=== PATIENT | female | born 1940 | race Caucasian/White ===

== ENCOUNTER 2017-08-31 09:57 | Outpatient (CLI) | payer MEDICARE, OTHER ==
[2017-08-31 10:23] LABS: BASOPHILS # (AUTO) 0.2 10^3/uL (0.0-0.1); BASOPHILS % (AUTO) 2.7 %; EOSINOPHILS # (AUTO) 0.3 10^3/uL (0.0-0.7); EOSINOPHILS % (AUTO) 4.4 %; LYMPHOCYTES # (AUTO) 1.6 10^3/uL (1.5-3.5); LYMPHOCYTES % (AUTO) 25.9 %; MEAN CORPUSCULAR HEMOGLOBIN 29.3 pg (27.0-31.0); MEAN CORPUSCULAR HGB CONC 33.3 g/dL (32.0-36.0); MEAN PLATELET VOLUME 9.4 fL (7.9-10.8); MONOCYTES # (AUTO) 0.4 10^3/uL (0.0-1.0); MONOCYTES % (AUTO) 6.9 %; NEUTROPHILS # (AUTO) 3.7 10^3/uL (1.5-6.6); NEUTROPHILS % (AUTO) 60.1 %; PLT - PLATELET COUNT 204 10^3/uL (130-450); RED BLOOD COUNT 4.43 10^6/uL (4.20-5.40); RED CELL DISTRIBUTION WIDTH 14.9 % (12.0-15.0); WHITE BLOOD COUNT 6.2 x10^3/uL (4.8-10.8)
[2017-08-31 10:51] LABS: ALBUMIN 3.8 g/dL (3.2-5.5); ALBUMIN/GLOBULIN RATIO 1.2 (1.0-2.2); ALKALINE PHOSPHATASE 51 IU/L (42-121); ALT ALANINE AMINOTRANSFERASE 21 IU/L (10-60); AST ASPARTATE AMINOTRANSFERASE 26 IU/L (10-42); BILIRUBIN,TOTAL 0.5 mg/dL (0.2-1.0); BUN - BLOOD UREA NITROGEN 15 mg/dL (6-20); CALCIUM 8.9 mg/dL (8.5-10.3); CARBON DIOXIDE - CO2 27 mmol/L (21-32); CHLORIDE 106 mmol/L (101-111); CHOL/HDL RATIO 2.8 (<4.4); CHOLESTEROL 194 mg/dL; CREATININE 0.7 mg/dL (0.4-1.0); GFR - MDRD 81 (>89); GLUCOSE 106 mg/dL (70-100); HDL CHOLESTEROL 70 mg/dL; LDL CHOLESTEROL,CALCULATED 101 mg/dL; LDL/HDL RATIO 1.4 (<4.4); SODIUM 139 mmol/L (135-145); VLDL CHOLESTEROL 23 mg/dL
== END 2017-08-31 09:58 | disposition home or self-care (01) ==
LOC: LAB 09:57
PROVIDERS: ATTEND Physician Assistant Medical
DX: E55.9 Vitamin D deficiency, unspecified (principal); M81.0 Age-related osteoporosis without current pathological fracture; E66.01 Morbid (severe) obesity due to excess calories; M54.9 Dorsalgia, unspecified; Z79.899 Other long term (current) drug therapy
CPT/HCPCS: 36415; 80053; 80061; 82306; 83721; 84443; 85025

== ENCOUNTER 2017-10-11 08:00 | Outpatient (CLI) | payer MEDICARE, OTHER ==
--- NOTE | 2017-10-12 16:53 | Mammography Report ---
DIGITAL SCREENING MAMMOGRAM: 10/11/2017 CLINICAL INDICATION: A 77-year-old for screening. COMPARISON: 06/2015, 10/2012, 08/2011, 09/2009 TECHNIQUE: Routine CC and MLO projections were obtained of the breasts. FINDINGS: The breasts demonstrate fatty replacement bilaterally. A punctate, typically benign calcifications are present. No suspicious masses, clustered microcalcifications, or regions of architectural distortion are identified. IMPRESSION: BENIGN FINDINGS. RECOMMENDATION: Routine annual screening unless otherwise clinically indicated. BIRADS CATEGORY 2 BENIGN FINDINGS. STANDARD QUALIFYING STATEMENTS: 1. This examination was reviewed with the aid of Computer-Aided Detection (CAD). 2. A negative or benign imaging report should not delay biopsy if clinically suspicious findings are present. Consider surgical consultation if warranted. More than 5% of cancers are not identified by imaging. 3. Dense breasts may obscure an underlying neoplasm. TD: 10/12/2017 16:52
== END 2017-10-11 08:01 | disposition home or self-care (01) ==
LOC: DI 08:00
PROVIDERS: ATTEND Physician Assistant Medical
DX: Z12.31 Encounter for screening mammogram for malignant neoplasm of breast (principal)
CPT/HCPCS: 77067

== ENCOUNTER 2017-10-12 15:11 | Outpatient (CLI) | payer MEDICARE, OTHER ==
[2017-10-12 15:33] LABS: BASOPHILS # (AUTO) 0.1 10^3/uL (0.0-0.1); BASOPHILS % (AUTO) 1.3 %; EOSINOPHILS # (AUTO) 0.3 10^3/uL (0.0-0.7); EOSINOPHILS % (AUTO) 3.9 %; HGB - HEMOGLOBIN 13.1 g/dL (12.0-16.0); LYMPHOCYTES # (AUTO) 2.5 10^3/uL (1.5-3.5); MEAN CORPUSCULAR HEMOGLOBIN 29.5 pg (27.0-31.0); MEAN CORPUSCULAR HGB CONC 33.4 g/dL (32.0-36.0); MEAN CORPUSCULAR VOLUME 88.1 fL (81.0-99.0); MEAN PLATELET VOLUME 9.5 fL (7.9-10.8); MONOCYTES # (AUTO) 0.6 10^3/uL (0.0-1.0); MONOCYTES % (AUTO) 8.9 %; NEUTROPHILS # (AUTO) 3.7 10^3/uL (1.5-6.6); NEUTROPHILS % (AUTO) 51.9 %; PLT - PLATELET COUNT 216 10^3/uL (130-450); RED BLOOD COUNT 4.43 10^6/uL (4.20-5.40); WHITE BLOOD COUNT 7.2 x10^3/uL (4.8-10.8)
[2017-10-12 15:41] LABS: ALBUMIN 3.9 g/dL (3.2-5.5); ALBUMIN/GLOBULIN RATIO 1.2 (1.0-2.2); BILIRUBIN,TOTAL 0.3 mg/dL (0.2-1.0); CALCIUM 8.7 mg/dL (8.5-10.3); CREATININE 0.6 mg/dL (0.4-1.0); TOTAL PROTEIN 7.1 g/dL (6.7-8.2)
== END 2017-10-12 15:12 | disposition home or self-care (01) ==
LOC: LAB 15:11
PROVIDERS: ATTEND Physician Assistant Medical
DX: R07.9 Chest pain, unspecified (principal)
CPT/HCPCS: 36415; 80053; 84484; 85025

== ENCOUNTER 2017-11-14 12:48 | Outpatient (CLI) | payer MEDICARE, OTHER ==
[~2017-11-14 12:48] MED LIST: GADOBUTROL 10 MMOL/10 ML VIAL ONE
[2017-11-14] MEDS ORDERED: GADOBUTROL 10 MMOL/10 ML VIAL IVP ONE (13:37)
--- NOTE | 2017-11-15 06:14 | MRI Report ---
EXAM: MRI BRAIN AND INTERNAL AUDITORY CANAL (IAC),WITHOUT AND WITH CONTRAST. EXAM DATE: 11/14/2017 01:47 PM. CLINICAL HISTORY: VERTIGO. COMPARISON: None. TECHNIQUE: Multiplanar, multisequence T1-weighted and fluid-sensitive MRI sequences of the brain and IACs were performed. Other: None. IV Contrast: 10ML GADAVIST. FINDINGS: Brain Volume: There is age-related generalized cerebral volume loss. Parenchyma/Dura: No acute hemorrhage, mass, or acute infarct.There is mild chronic microvascular charles ge in the white matter of both cerebral hemispheres. The brainstem and cerebellum are normal in signa l. No abnormal enhancement. Internal Auditory Canals (IACs): Normal. There is no mass or abnormal contrast enhancement in the int racolonic ray canals or cerebellopontine angle cisterns. The inner ear structure are symmetric and un remarkable. Ventricles/Cisterns: No hydrocephalus. No abnormal extra-axial fluid collection or hemorrhage. Orbits: Symmetric and unremarkable. Sella Turcica: Unremarkable. Vasculature: Normal signal flow void is seen in the major arterial structures at the skull base. The dural sinuses are patent and enhance normally. Sinuses: No acute sinus disease. Bones: No focal pathologic appearing marrow signal changes. Other: There is no Chiari I malformation. IMPRESSION: 1. No acute intracranial abnormality. No acute infarct. 2. Mild age related generalized cerebral volume loss and chronic microvascular change. 3. No intracranial mass lesion, mass effect, hydrocephalus, or abnormal contrast enhancement. 4. Normal MRI of bilateral IACs. [facility] Referring Provider Line: [phone] SITE ID: [id number]
== END 2017-11-14 12:49 | disposition home or self-care (01) ==
LOC: DI 12:48
PROVIDERS: ATTEND Physician Assistant Medical
DX: R42 Dizziness and giddiness (principal); R00.2 Palpitations; R07.9 Chest pain, unspecified; R03.0 Elevated blood-pressure reading, without diagnosis of hypertension; E66.01 Morbid (severe) obesity due to excess calories
CPT/HCPCS: 70553; A9585

== ENCOUNTER 2017-11-16 09:54 | Outpatient (CLI) | payer MEDICARE, OTHER ==
[2017-11-16] MEDS ORDERED: ADENOSINE 90 MG/30 ML VIAL IVP SCH (12:00)
--- NOTE | 2017-11-16 13:27 | CARDIAC PROCEDURE NOTE ---
DATE OF SERVICE: 11/16/2017 Physician: VIC Gupta PRIMARY CARE PHYSICIAN: Rebeka dominguez PA-C PROCEDURE: Pharmacologic cardiac stress test. SYMPTOMS: Palpitations and chest pain. CARDIAC RISK FACTORS: Age, family history, hypertension. PREVIOUS CARDIAC PROCEDURES: None. CLINICAL HISTORY: 77-year-old female without known coronary artery disease. She has no current symptoms. INITIAL RESTING VITAL SIGNS: BP 150/84, heart rate 73, height 66 inches, weight 230 pounds, BMI 37.0. PROCEDURE AND FINDINGS: The patient identity and date verified. Consent signed. Pharmaceutical check. Pharmacologic stress testing was performed with adenosine at a dose of 140 mcg/kg/min over 6 minutes. The heart rate increased to 104 beats per minute from the infusion. Blood pressure response was normal and dropped to about 120 systolic. The patient developed infusion-related symptoms, which included flushing, headache, and chest and arm pressure. These symptoms resolved spontaneously. The resting ECG demonstrated normal sinus rhythm with nonspecific ST changes of approximately 0.[address] depression[address] ST segment depression with stress was approximately 1 mm and flat in leads II, III, aVF, V3-6. There was a rare PVC. FINAL IMPRESSIONS 1. A positive electrocardiogram for ischemia in the setting of vasodilator stress. 2. Nondiagnostic stress test for angina. 3. Await myocardial perfusion report. TD: 11/16/2017 13:12
[2017-11-16 16:37] VITALS: BP 150/84
--- NOTE | 2017-11-16 17:17 | Nuclear Medicine Report ---
EXAM: NUCLEAR MEDICINE MYOCARDIAL PERFUSION STRESS AND REST EXAM DATE: 11/16/2017 03:30 PM. CLINICAL HISTORY: Palpitations, chest pain. COMPARISON: None. TECHNIQUE: Patient given 9.6 mCi technetium 99m sestamibi IV for the rest portion of the study. Non-g ated cardiac SPECT scintigraphy performed with multiplanar reformats. After an appropriate delay, patient given 85.9 mg adenosine by slow intravenous infusion. Cardiac gat ed SPECT scintigraphy is performed with multiplanar reformats, wall motion analysis, and left ventric ular ejection fraction estimation. FINDINGS: Maximum heart rate 104 bpm, 72% of maximum predicted. There is mild to moderate decreased activity in the anterior and anteroseptal mid ventricle on both s tress and rest, most consistent with breast attenuation artifact. Other than this, there is uniform uptake in the left ventricular myocardium on stress and rest. No st ress related reversible perfusion defects. Wall motion is uniform. Left ventricular ejection fraction estimated at 81%. IMPRESSION: 1. No scintigraphic evidence of inducible ischemia or infarct. 2. Anteroseptal defect most likely breast attenuation artifact. 3. Left ventricular ejection fraction estimated at 81%. [facility] Referring Provider Line: [phone] SITE ID: [id number]
== END 2017-11-16 09:55 | disposition home or self-care (01) ==
LOC: DI 09:54
PROVIDERS: ATTEND Physician Assistant Medical
DX: R00.2 Palpitations (principal); R07.9 Chest pain, unspecified; R03.0 Elevated blood-pressure reading, without diagnosis of hypertension; E66.01 Morbid (severe) obesity due to excess calories
CPT/HCPCS: 78452; 93017; A9500; J0153; 93016; 93018

== ENCOUNTER 2019-08-01 11:36 | Outpatient (CLI) | payer MEDICARE, OTHER ==
[2019-08-02 14:22] LABS: HGB - HEMOGLOBIN 13.3 g/dL (12.0-16.0); RED BLOOD COUNT 4.41 10^6/uL (4.20-5.40); WHITE BLOOD COUNT 5.8 x10^3/uL (4.8-10.8)
[2019-08-02 14:23] LABS: MEAN CORPUSCULAR HEMOGLOBIN 30.2 pg (27.0-31.0); MEAN CORPUSCULAR HGB CONC 33.2 g/dL (32.0-36.0); MEAN CORPUSCULAR VOLUME 90.9 fL (81.0-99.0); MEAN PLATELET VOLUME 11.1 fL (7.9-10.8); NEUTROPHILS % (AUTO) 59.3 %; PLT - PLATELET COUNT 234 10^3/uL (130-450)
[2019-08-02 14:24] LABS: BASOPHILS # (AUTO) 0.1 10^3/uL (0.0-0.1); BASOPHILS % (AUTO) 1.4 %; EOSINOPHILS # (AUTO) 0.2 10^3/uL (0.0-0.7); EOSINOPHILS % (AUTO) 3.6 %; LYMPHOCYTES # (AUTO) 1.7 10^3/uL (1.5-3.5); LYMPHOCYTES % (AUTO) 28.5 %; MONOCYTES # (AUTO) 0.4 10^3/uL (0.0-1.0); MONOCYTES % (AUTO) 6.9 %; NEUTROPHILS # (AUTO) 3.4 10^3/uL (1.5-6.6)
[2019-08-02 14:42] LABS: BUN - BLOOD UREA NITROGEN 17 mg/dL (6-20); CARBON DIOXIDE - CO2 28 mmol/L (21-32); CHLORIDE 102 mmol/L (101-111); SODIUM 140 mmol/L (135-145)
[2019-08-02 14:43] LABS: ALKALINE PHOSPHATASE 46 IU/L (42-121); ALT ALANINE AMINOTRANSFERASE 21 IU/L (10-60); AST ASPARTATE AMINOTRANSFERASE 26 IU/L (10-42); BILIRUBIN,TOTAL 0.7 mg/dL (0.2-1.0); CALCIUM 9.1 mg/dL (8.5-10.3); CREATININE 0.7 mg/dL (0.4-1.0); CRP - C-REACTIVE PROTEIN < 1.0 mg/dL (0-1.0); GFR - MDRD 81 (>89); GLUCOSE 107 mg/dL (70-100)
[2019-08-02 14:44] LABS: ALBUMIN/GLOBULIN RATIO 1.3 (1.0-2.2); CHOLESTEROL 183 mg/dL; TOTAL PROTEIN 7.1 g/dL (6.7-8.2); VLDL CHOLESTEROL 15 mg/dL
[2019-08-02 14:45] LABS: CHOL/HDL RATIO 2.3 (<4.4); HDL CHOLESTEROL 78 mg/dL; LDL CHOLESTEROL,CALCULATED 90 mg/dL; LDL/HDL RATIO 1.2 (<4.4)
== END 2019-08-01 23:59 | disposition home or self-care (01) ==
LOC: LAB 11:36
PROVIDERS: ATTEND Nurse Practitioner
DX: Z00.00 Encounter for general adult medical examination without abnormal findings (principal); I10 Essential (primary) hypertension; Z79.899 Other long term (current) drug therapy; E66.01 Morbid (severe) obesity due to excess calories; M81.0 Age-related osteoporosis without current pathological fracture; E55.9 Vitamin D deficiency, unspecified; F32.9 Major depressive disorder, single episode, unspecified; R00.2 Palpitations
CPT/HCPCS: 36415; 80053; 80061; 82306; 83721; 84443; 85025; 86140

== ENCOUNTER 2019-08-01 12:43 | Outpatient (CLI) | payer MEDICARE, OTHER ==
--- NOTE | 2019-08-02 | Ultrasound Report ---
Reason: RT KNEE MASS Procedure Date: 08/01/2019 Accession Number: [id number] / [id number] Procedure: US - Duplex Ext Veins Right CPT Code: Final Report FULL RESULT: EXAM: RIGHT LOWER EXTREMITY VENOUS ULTRASOUND EXAM DATE: 08/01/2019 02:17 PM. CLINICAL HISTORY: RT KNEE MASS. COMPARISON: DUPLEX EXT VEINS RIGHT 03/09/2015 3:30 PM. TECHNIQUE: Real-time sonographic vascular imaging was performed by the balancer scale through the lower extremity utilizing both color-flow and Doppler spectral analysis. Multiple ict sales representative static images were saved for review. FINDINGS: Common Femoral Vein (CFV): Normal. CFV-GSV Junction: Normal. Profunda Femoral Vein (PFV): Normal. Femoral Vein (FV) Prox: Normal. Femoral Vein (FV) Mid: Normal. Femoral Vein (FV) Dist: Normal. Popliteal Vein: Normal. Posterior Tibial Veins: Limited visualization. Given the limitations, no thrombus identified. Peroneal Veins: Limited visualization. Given the limitations, no thrombus identified. Contralateral Side CFV: Normal. Other: No focal abnormality in the posterior right knee area of clinical concern. Specifically, no popliteal fossa cyst is noted. IMPRESSION: 1. Suboptimal visualization of posterior tibial and peroneal veins. 2. Given the limitations, no evidence for deep venous thrombosis. 3. No popliteal fossa cyst is identified in the area of clinical concern. [facility]
--- NOTE | 2019-08-02 08:23 | XRAY Report ---
Reason: KNEE JOINT PAIN Procedure Date: 08/01/2019 Accession Number: [id number] / [id number] Procedure: XR - Knee 3 View BILAT CPT Code: Final Report FULL RESULT: EXAMS: 1. Right Knee Radiography 2. Left Knee Radiography EXAM DATE:08/01/2019 01:10 PM. CLINICAL HISTORY:KNEE JOINT PAIN. COMPARISON: None. TECHNIQUE: 3 views each. FINDINGS: Right Knee: Bones: Normal. No fractures or bone lesions. Joints: Mild tricompartmental joint space loss. Spurring of tibial spines and lateral compartment. No effusion. Soft Tissues: Normal. No soft tissue swelling. Left Knee: Bones: Normal. No fractures or bone lesions. Joints: Mild tricompartmental joint space narrowing with spurring of tibial spines, lateral compartment and lateral patella. No effusion. Soft Tissues: Normal. No soft tissue swelling. 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 [facility]
--- NOTE | 2019-08-06 12:58 | DEXA Report ---
Reason: MENOPAUSE Procedure Date: 08/01/2019 Accession Number: [id number] / [id number] Procedure: DEX - Dexa Spine and/or Hip CPT Code: Final Report FULL RESULT: EXAM: Dexa Spine and/or Hip DATE: 08/01/2019 3:22 PM CLINICAL HISTORY: MENOPAUSE TECHNIQUE: Dual energy x-ray absorptiometry (DXA) was performed on a [employer] System. Regions measured are the AP Spine, femoral neck, and if needed forearm. COMPARISON: 04/14/2016. In accordance with the International Society for Clinical Densitometry (ISCD) guidelines, data from previous exams may be reanalyzed using current recommendations and techniques. This is done to allow a more accurate basis for comparison with the current study. FINDINGS: The data for the lumbar spine is as follows: BMD (g/cm/cm) T-SCORE Z-SCORE REGION L1 0.946 -1.5 -0.8 L2 0.885 -2.6 -1.9 L3 0.976 -1.9 -1.1 L4 0.945 -2.1 -1.4 TOTAL 0.939 -2.0 -1.3 NOTE: All evaluable vertebrae are used for classification The data for the hip is as follows: BMD (g/cm/cm) T-SCORE Z-SCORE REGION Neck 0.892 -1.1 0.3 TOTAL 0.906 -0.8 0.4 NOTE: The femoral neck or total proximal femur, whichever is lowest, is used for classification. DXA RESULTS SUMMARY: Spine SCAN DATE [age] BMD CHANGE VS CHANGE VS PREVIOUS PREVIOUS % [birth year]01[birth year]2019 [age] 0[age]939 -0.020 -2.1 04[birth year]14/2016 75.5 0[age]959 * Denotes significant change at the 95% confidence level. Denotes dissimilar scan types or analysis methods. DXA RESULTS SUMMARY: Hip SCAN DATE [age]GE BMD CHANGE VS CHANGE VS PREVIOUS PREVIOUS % [birth year]2019 78.8 0.906 0.012 1.3 [birth year]14[birth year]2016 75.5 0.894 * Denotes significant change at the 95% confidence level. Denotes dissimilar scan types or analysis methods. IMPRESSION: THE WHO CLASSIFICATION BASED ON THE INTERNATIONAL REFERENCE STANDARD IS OSTEOPENIA. THE FRACTURE RISK IS INCREASED. RECOMMENDATION: Patients with diagnosis of osteoporosis or osteopenia should have regular bone mineral density assessment. For those eligible for Medicare, routine testing is allowed once every 2 years. Testing frequency can be increased for patients who have rapidly progressing disease or for those who are receiving medical therapy to restore bone mass. COMMENT: World Health Organization (WHO) definitions for osteoporosis and osteopenia: NORMAL BMD: T-score at -1.0 or higher, fracture risk is low OSTEOPENIA BMD: T-score between -1.0 and -2.5, fracture risk is increased. OSTEOPOROSIS BMD: T-score at -2.5 or lower, fracture risk is high. National Osteoporosis Foundation recommends: 1. Obtain adequate dietary calcium (at least 1200 mg per day) and vitamin D (400-800 international units per day). 2. Participate, as appropriate, in regular weightbearing and muscle-strengthening exercise. 3. Avoid tobacco use and reduce alcohol and caffeine intake. 4. For more detailed information see the website at www.NOF.org.
== END 2019-08-01 12:44 | disposition home or self-care (01) ==
LOC: DI 12:43
PROVIDERS: ATTEND Nurse Practitioner
DX: M17.0 Bilateral primary osteoarthritis of knee (principal); M85.88 Other specified disorders of bone density and structure, other site; Z00.00 Encounter for general adult medical examination without abnormal findings; I10 Essential (primary) hypertension; Z79.899 Other long term (current) drug therapy; E66.01 Morbid (severe) obesity due to excess calories; M81.0 Age-related osteoporosis without current pathological fracture; E55.9 Vitamin D deficiency, unspecified; F32.9 Major depressive disorder, single episode, unspecified; R00.2 Palpitations
CPT/HCPCS: 36415; 77080; 80053; 80061; 82306; 83721; 84443; 85025; 86140